=== PATIENT | male | born 1935 | race Caucasian/White ===

== ENCOUNTER 2021-03-16 16:17 | Emergency (ER) | payer MEDICARE, OTHER ==
--- NOTE | 2021-03-16 17:04 | EDM.PDOC ---
ED HPI GENERAL MEDICAL PROBLEM - General Chief Complaint: Lower Extremity Injury/Pain Stated Complaint: LEG FEELS LIKE ITS BURNING Time Seen by Provider: 03/16/21 16:38 Source of Information: Reports: Patient, RN Notes Reviewed - History of Present Illness INITIAL COMMENTS - FREE TEXT/NARRATIVE: 85 yr old male with burning discomfort R lower leg. He was working with some cut up fence about 4 to 5 days ago. Started having burnind discomfort R lower leg 2 or 3 days ago. Has multiple abrasions R lower leg. Thinks they may have come from working with the barbed wire but unsure. No appreciable swelling. No other area of rash or hives. Right Lower Leg Pain Score (Numeric/FACES): 6 - Related Data Allergies Allergy/AdvReac Type Severity Reaction Status Date / Time Penicillins Allergy Severe Swelling Verified 03/16/21 16:33 Home Meds: Home Meds Albuterol Sulfate [Albuterol Sulfate HFA] 2 inh INH Q4H PRN 03/16/21 [History] Alpha Lipoic Acid 600 mg PO DAILY 03/16/21 [History] Aspirin [Aspirin EC] 81 mg PO DAILY 03/16/21 [History] Cyclosporine/Chondroitin [Cyclosporine 0.1% in Klarity] 1 drop OP BID 03/16/21 [History] Empagliflozin [Jardiance] 12.5 mg PO DAILY 03/16/21 [History] Fluorometholone [Fluorometholone 0.1% Ophth Susp] 1 drop OP BID 03/16/21 [History] Insulin Glarg,Human.Rec.Analog [Lantus] 12 unit SUBCUT DAILY 03/16/21 [History] Liraglutide [Victoza 2-Nasir] 1.8 mg SQ DAILY 03/16/21 [History] Losartan [Cozaar] 50 mg PO DAILY 03/16/21 [History] Metoprolol Tartrate 25 mg PO DAILY 03/16/21 [History] Oxybutynin 5 mg PO BID 03/16/21 [History] Simvastatin 40 mg PO BEDTIME 03/16/21 [History] Tamsulosin [Tamsulosin 24 Hr] 0.4 mg PO BID 03/16/21 [History] Triamcinolone Acetonide [Kenalog 0.1% Crm] 15 applic TOP BID 03/16/21 [History] Triamcinolone Acetonide [Triamcinolone Acetonide 0.1% Oint] 15 gm .XX BID #1 gm 03/16/21 [Rx] Vit C/E/Zn/Coppr/Lutein/Zeaxan [Preservision Areds 2 Softgel] 1 each PO BID 03/16/21 [History] glyBURIDE [Glyburide] 2.5 mg PO DAILY 03/16/21 [History] hydroCHLOROthiazide [Hydrochlorothiazide] 12.5 mg PO DAILY 03/16/21 [History] metroNIDAZOLE [Metronidazole] 1 applic TP BID 03/16/21 [History] Past Medical History Cardiovascular History: Reports: High Cholesterol, Hypertension Respiratory History: Reports: Bronchitis, Recurrent Genitourinary History: Reports: Renal Disease Endocrine/Metabolic History: Reports: Diabetes, Type II, Obesity/BMI 30+ - Past Surgical History Neurological Surgical History: Reports: Lumbar Spine Musculoskeletal Surgical History: Reports: Shoulder Surgery Social & Family History - Tobacco Use Tobacco Use Status *Q: Former Tobacco User Used Tobacco, but Quit: Yes Month/Year Tobacco Last Used: 1992 - Caffeine Use Caffeine Use: Reports: Coffee - Recreational Drug Use Recreational Drug Use: No Review of Systems - Review of Systems Review Of Systems: See Below Constitutional: Reports: No Symptoms Eyes: Reports: No Symptoms Mouth/Throat: Reports: No Symptoms Respiratory: Reports: No Symptoms Cardiovascular: Reports: No Symptoms GI/Abdominal: Reports: No Symptoms Musculoskeletal: Reports: Leg Pain Skin: Reports: Other (Abrasions R lower lat leg) ED EXAM, GENERAL - Physical Exam Exam: See Below General Appearance: Alert Head: Atraumatic Neck: Supple Respiratory/Chest: No Respiratory Distress Extremities: Other (multiple linear somewhat parallel abrasions lateral aspect RLE. no visible swelling. no unusual surrounding erythema. Calf nontender and not swollen) Skin Exam: Warm, Dry, Normal Color, Other (no other area of skin rash or hives) Course - Vital Signs Last Recorded V/S: Last Vital Signs Temp 97.2 F 03/16/21 16:29 Pulse 93 03/16/21 16:29 Resp 16 03/16/21 16:29 BP 156/85 H 03/16/21 16:29 Pulse Ox 94 L 03/16/21 16:29 Departure - Departure Time of Disposition: 17:00 Disposition: Home, Self-Care 01 Condition: Fair Clinical Impression: Leg abrasion, non-infected - Discharge Information Prescriptions: Triamcinolone Acetonide [Triamcinolone Acetonide 0.1% Oint] 15 gm .XX BID #1 gm Instructions: Abrasion, [id number] Referrals: Joseph Estevez MD [Primary Care Provider] - Forms: ED Department Discharge Additional Instructions: triamcinolone ointment 2 to 3 times daily for 2 days and than twice daily until symptoms of burning R lower leg resolved. Pres[facility]. If this starts getting very red, more swollen with infection concern have this rechecked. Elevate leg as much as possible for the next 2 to 3 days. Tylenol 2 to 3 times daily as needed. Ice packs 2 to 3 times daily also safe and should be helpful as needed. Sepsis Event Note (ED) - Evaluation Sepsis Screening Result: No Definite Risk - Focused Exam Vital Signs: Vital Signs Temp Pulse Resp BP Pulse Ox 03/16/21 16:29 97.2 F 93 16 156/85 H 94 L
== END 2021-03-16 17:09 | disposition home or self-care (01) ==
LOC: JD.ED 16:17
DX: S80.811A Abrasion, right lower leg, initial encounter (principal); E78.00 Pure hypercholesterolemia, unspecified; I10 Essential (primary) hypertension; E11.9 Type 2 diabetes mellitus without complications; E66.9 Obesity, unspecified; Z68.33 Body mass index [BMI] 33.0-33.9, adult; Z87.891 Personal history of nicotine dependence; Z88.0 Allergy status to penicillin; Z79.82 Long term (current) use of aspirin; Z79.4 Long term (current) use of insulin; Z79.899 Other long term (current) drug therapy; X58.XXXA Exposure to other specified factors, initial encounter
CPT/HCPCS: 99282